=== PATIENT | female | born 1970 | race African-American/Black ===

== ENCOUNTER 2017-02-27 09:38 | Emergency (ER) | payer OTHER ==
[2017-02-27] VITALS (7 sets, daily range): BP systolic 102–126; BP diastolic 58–76
[~2017-02-27] VITALS: Ht 162.6 cm; Wt 81.5 kg
[2017-02-27] MEDS ORDERED: MORPHINE SULFATE 4 MG/ML SYRINGE IVP ONE (12:45)
[2017-02-27] MEDS ORDERED: SODIUM CHLORIDE 0.9% 1,000 ML IV ONE (12:45)
[2017-02-27] MEDS ORDERED: ONDANSETRON HCL 4 MG/2 ML VIAL IVP ONE (12:45)
[2017-02-27 13:16] LABS: INR 1.1 (0.9-1.1); PROTHROMBIN TIME 11.5 SEC (9.4-11.6)
[2017-02-27 13:39] LABS: ANION GAP 9 mmol/L (8-16); CALCIUM, TOTAL 8.7 mg/dL (8.8-10.5); CARBON DIOXIDE 23 mmol/L (22-29); CHLORIDE 101 mmol/L (98-107); GLOMERULAR FILTR. RATE CALC > 60 mL/min (>60); GLUCOSE,RANDOM 77 mg/dL (70-110); POTASSIUM 3.6 mmol/L (3.5-5.1); SODIUM SERUM 133 mmol/L (136-145); UREA NITROGEN, BLOOD 4 mg/dL (7-18)
[2017-02-27 13:47] LABS: ALANINE AMINOTRANSFERASE 66 U/L (12-78); ALBUMIN 3.7 g/dL (3.4-5.0); ALKALINE PHOSPHATASE 126 U/L (46-116); ASPARTATE AMINOTRANSFERASE 24 U/L (15-37); BILIRUBIN,TOTAL 0.8 mg/dL (0.1-1.0); TOTAL PROTEIN, SERUM 8.3 g/dL (6.4-8.2)
[2017-02-27 14:05] LABS: MEAN CORPUSCULAR HEMOGLOBIN 16.9 pg (26.0-34.0); MEAN CORPUSCULAR HGB CONC 30.4 G/dL (31.0-37.0); MEAN CORPUSCULAR VOLUME 56 fL (80-100); PLATELET COUNT (AUTO) 184 K/uL (150-450); RED BLOOD CELL COUNT(AUTO) 2.76 MIL/uL (4.00-5.20); RED CELL DISTRIBUTION WIDTH 30.5 % (11.5-14.5)
[2017-02-27 14:10] LABS: HEMOGLOBIN 4.7 g/dL (12.0-16.0)
[2017-02-27 14:11] LABS: HEMATOCRIT 15.4 % (36-46)
[2017-02-27 14:14] LABS: AMPHET/METH SCREEN,URINE POSITIVE (NEGATIVE); BARBITURATE SCREEN, URINE NEGATIVE (NEGATIVE); BENZODIAZEPINES SCREEN,URINE NEGATIVE (NEGATIVE); CANNABINOID SCREEN,URINE NEGATIVE (NEGATIVE); COCAINE SCREEN,URINE NEGATIVE (NEGATIVE); METHADONE SCREEN, URINE NEGATIVE (NEGATIVE); OPIATE SCREEN,URINE POSITIVE (NEGATIVE)
[2017-02-27 14:16] LABS: PHENCYCLIDINE SCREEN,URINE NEGATIVE (NEGATIVE)
[2017-02-27] MEDS ORDERED: BARIUM SULFATE 0.1% SUSPENSION 450 ML BOTTLE PO ONE (14:30)
[2017-02-27 14:50] LABS: APPEARANCE,URINE CLEAR (CLEAR); BILIRUBIN,URINE NEGATIVE (NEGATIVE); GLUCOSE, URINE (UA) NEGATIVE (NEGATIVE); KETONES,URINE NEGATIVE (NEGATIVE); LEUKOCYTE ESTERASE ,URINE NEGATIVE (NEGATIVE); NITRATE,URINE NEGATIVE (NEGATIVE); OCCULT BLOOD,URINE NEGATIVE (NEGATIVE); PROTEIN,URINE NEGATIVE (NEGATIVE)
[2017-02-27 14:55] LABS: BAND NEUTROPHILS % (MANUAL) 2 % (1-5); LYMPHOCYTES % (MANUAL) 11 % (22-44); MONOCYTES % (MANUAL) 4 % (2-9); SEGMENTED NEUTROPHILS % 83 % (40-70)
[2017-02-27] MEDS ORDERED: ACETAMINOPHEN 500 MG TABLET PO ONE (17:15)
[2017-02-27 21:27] LABS: INFLUENZA TYPE A POSITIVE FOR TYPE A (NEGATIVE); INFLUENZA TYPE B NEGATIVE FOR TYPE B (NEGATIVE)
[2017-02-27] MEDS ORDERED: OSELTAMIVIR PHOSPHATE 75 MG CAPSULE PO ONE (21:45)
[2017-02-28 00:02] VITALS: BP 118/68
== END 2017-02-28 01:54 | disposition short-term general hospital (02) ==
LOC: EMS 09:40
DX: D64.9 Anemia, unspecified (principal); R19.00 Intra-abdominal and pelvic swelling, mass and lump, unspecified site; J09.X2 Influenza due to identified novel influenza A virus with other respiratory manifestations
CPT/HCPCS: 36415; 36430; 74177; 80053; 80307; 81003; 85025; 85610; 86850; 86900; 86901; 86920; 87804; 96361; 96374; 96375; 99285; J2270; J2405; J7030; P9016; Z7610

== ENCOUNTER 2017-03-13 12:29 | Emergency (ER) | payer OTHER ==
[~2017-03-13] VITALS: Ht 172.7 cm; Wt 81.8 kg
[2017-03-13] MEDS ORDERED: FERR-89 PO (12:30)
[2017-03-13] MEDS ORDERED: FLUORESCEIN SODIUM 1 MG STRIP ONE (13:52)
[2017-03-13] MEDS ORDERED: PROPARACAINE HCL 0.5% 15 ML OPHTHALMIC SOLUTION OS ONE (14:00)
[2017-03-13 14:44] VITALS: BP 137/77
== END 2017-03-13 14:47 | disposition home or self-care (01) ==
LOC: EMS 12:29
DX: H10.9 Unspecified conjunctivitis (principal)
CPT/HCPCS: 99283

== ENCOUNTER 2017-11-22 06:10 | Emergency (ER) | payer OTHER ==
[~2017-11-22] VITALS: Ht 167.6 cm; Wt 85.0 kg
[~2017-11-22 06:10] MED LIST: FERR-89 PO
[2017-11-22] MEDS ORDERED: KETOROLAC TROMETHAMINE 60 MG/2 ML VIAL IM ONE (07:00)
[2017-11-22] MEDS ORDERED: HYDROCODONE/ACETAMINOPHEN 5-325 MG TABLET PO ONE (07:00)
[2017-11-22 08:03] VITALS: BP 143/84
== END 2017-11-22 08:10 | disposition home or self-care (01) ==
LOC: EMS 06:10
DX: S92.322A Displaced fracture of second metatarsal bone, left foot, initial encounter for closed fracture (principal); S92.332A Displaced fracture of third metatarsal bone, left foot, initial encounter for closed fracture; S92.342A Displaced fracture of fourth metatarsal bone, left foot, initial encounter for closed fracture; Z90.710 Acquired absence of both cervix and uterus; Z90.721 Acquired absence of ovaries, unilateral; W10.9XXA Fall (on) (from) unspecified stairs and steps, initial encounter; Y93.89 Activity, other specified; Y92.89 Other specified places as the place of occurrence of the external cause; Y99.8 Other external cause status
CPT/HCPCS: 73630; 96372; 99284; J1885

== ENCOUNTER 2021-04-22 11:19 | Emergency (ER) | payer OTHER ==
[~2021-04-22] VITALS: Ht 162.6 cm; Wt 104.5 kg
[2021-04-22] MEDS ORDERED: AmLODIPine BESYLATE 10 MG TABLET PO ONE (12:30)
[2021-04-22 12:33] LABS: EOSINOPHILS % (AUTO) 4.2 % (1.0-6.0); HEMATOCRIT 38.4 % (36-46); HEMOGLOBIN 13.4 g/dL (12.0-16.0); LYMPHOCYTES # (AUTO) 1.9 K/uL (1.0-4.8); LYMPHOCYTES % (AUTO) 31.3 % (22.0-44.0); MEAN CORPUSCULAR HEMOGLOBIN 27.5 pg (26.0-34.0); MEAN CORPUSCULAR HGB CONC 34.8 G/dL (31.0-37.0); MEAN CORPUSCULAR VOLUME 79 fL (80-100); MONOCYTES # (AUTO) 0.6 K/uL (0.1-1.0); MONOCYTES % (AUTO) 10.6 % (2.0-9.0); NEUTROPHILS # (AUTO) 3.2 K/uL (1.8-7.7); NEUTROPHILS % (AUTO) 52.9 % (40.0-70.0); PLATELET COUNT (AUTO) 288 K/uL (150-450); RED BLOOD CELL COUNT(AUTO) 4.86 MIL/uL (4.00-5.20)
[2021-04-22] MEDS ORDERED: AMLO-258 PO (12:36)
[2021-04-22] MEDS ORDERED: PANT-31 PO (12:36)
[2021-04-22 12:46] LABS: ANION GAP 10 mmol/L (8-16); CALCIUM, TOTAL 8.9 mg/dL (8.8-10.5); CARBON DIOXIDE 28 mmol/L (22-29); CHLORIDE 101 mmol/L (98-107); CREATININE 0.69 mg/dL (0.60-1.30); GLOMERULAR FILTR. RATE CALC > 60 mL/min (>60); GLUCOSE,RANDOM 98 mg/dL (70-110); SODIUM SERUM 139 mmol/L (136-145); UREA NITROGEN, BLOOD 3 mg/dL (7-18)
[2021-04-22 13:43] VITALS: BP 153/102
== END 2021-04-22 13:49 | disposition home or self-care (01) ==
LOC: EMS 11:19
DX: K21.9 Gastro-esophageal reflux disease without esophagitis (principal); I10 Essential (primary) hypertension
CPT/HCPCS: 71045; 80048; 85025; 93005; 99285; 36415-L1; 36415-TC

== ENCOUNTER 2021-05-17 12:13 | Emergency (ER) | payer OTHER ==
[~2021-05-17] VITALS: Ht 165.1 cm; Wt 106.8 kg
[~2021-05-17 12:13] MED LIST changes: +AMLO-258 PO; -FERR-89 PO; +PANT-31 PO
[2021-05-17] MEDS ORDERED: LIDOCAINE 5% TRANSDERMAL PATCH TD ONE (12:30)
[2021-05-17 12:53] LABS: BASOPHILS % (AUTO) 0.6 % (0.0-2.0); HEMATOCRIT 38.9 % (36-46); HEMOGLOBIN 13.4 g/dL (12.0-16.0); LYMPHOCYTES # (AUTO) 2.1 K/uL (1.0-4.8); LYMPHOCYTES % (AUTO) 22.3 % (22.0-44.0); MEAN CORPUSCULAR HEMOGLOBIN 27.2 pg (26.0-34.0); MEAN CORPUSCULAR HGB CONC 34.6 G/dL (31.0-37.0); MEAN CORPUSCULAR VOLUME 79 fL (80-100); MONOCYTES # (AUTO) 0.7 K/uL (0.1-1.0); MONOCYTES % (AUTO) 7.6 % (2.0-9.0); NEUTROPHILS # (AUTO) 6.4 K/uL (1.8-7.7); NEUTROPHILS % (AUTO) 67.5 % (40.0-70.0); PLATELET COUNT (AUTO) 337 K/uL (150-450); RED BLOOD CELL COUNT(AUTO) 4.93 MIL/uL (4.00-5.20); RED CELL DISTRIBUTION WIDTH 14.7 % (11.5-14.5)
[2021-05-17 13:08] LABS: ANION GAP 10 mmol/L (8-16); CALCIUM, TOTAL 9.5 mg/dL (8.8-10.5); CARBON DIOXIDE 27 mmol/L (22-29); CHLORIDE 101 mmol/L (98-107); CREATININE 0.66 mg/dL (0.60-1.30); GLOMERULAR FILTR. RATE CALC > 60 mL/min (>60); GLUCOSE,RANDOM 95 mg/dL (70-110); SODIUM SERUM 138 mmol/L (136-145); UREA NITROGEN, BLOOD 9 mg/dL (7-18)
[2021-05-17 13:15] LABS: ALANINE AMINOTRANSFERASE 76 U/L (12-78); ALKALINE PHOSPHATASE 169 U/L (46-116); ASPARTATE AMINOTRANSFERASE 52 U/L (15-37); BILIRUBIN,TOTAL 0.4 mg/dL (0.1-1.0); TOTAL PROTEIN, SERUM 8.9 g/dL (6.4-8.2)
[2021-05-17 14:36] VITALS: BP 142/97
[2021-05-17] MEDS ORDERED: LIDO700A15 TP (14:37)
[2021-05-17] MEDS ORDERED: IBUP-1554 PO (14:37)
[2021-05-17] MEDS ORDERED: BACL10TA PO (14:37)
[2021-05-17] MEDS ORDERED: AMLO-258 PO (14:41)
== END 2021-05-17 14:50 | disposition home or self-care (01) ==
LOC: EMS 12:13
DX: I10 Essential (primary) hypertension (principal); M62.838 Other muscle spasm; R51.9 Headache, unspecified; D64.9 Anemia, unspecified; Z79.899 Other long term (current) drug therapy
CPT/HCPCS: 80053; 84484; 85025; 93005; 99284

== ENCOUNTER 2023-01-05 12:05 | Emergency (ER) | payer OTHER ==
[~2023-01-05] VITALS: Ht 162.6 cm; Wt 90.9 kg
[~2023-01-05 12:05] MED LIST changes: +BACL10TA PO; +IBUP-1554 PO; +LIDO700A15 TP
[2023-01-05 12:16] VITALS: TEMP 98.6
[2023-01-05] MEDS ORDERED: ATOR20TA65 PO (14:57)
[2023-01-05] MEDS ORDERED: LOSA100T59 PO (14:57)
[2023-01-05] MEDS ORDERED: OMEP20CA12 PO (14:57)
[2023-01-05] MEDS ORDERED: PROP10DR15 OU (14:57)
[2023-01-05] MEDS ORDERED: AMLO5TAB66 PO (14:57)
[2023-01-05] MEDS ORDERED: PredniSONE 10 MG TABLET PO ONE (15:00)
[2023-01-05 15:28] VITALS: BP 142/90; PULSE 75; RESP 18
== END 2023-01-05 15:29 | disposition home or self-care (01) ==
LOC: EMS 12:05
DX: T63.481A Toxic effect of venom of other arthropod, accidental (unintentional), initial encounter (principal); E78.00 Pure hypercholesterolemia, unspecified; I10 Essential (primary) hypertension; Z98.890 Other specified postprocedural states
CPT/HCPCS: 99283; J7512

== ENCOUNTER 2023-06-21 15:28 | Emergency (ER) | payer OTHER ==
[~2023-06-21] VITALS: Ht 167.6 cm; Wt 84.1 kg
[~2023-06-21 15:28] MED LIST changes: -AMLO-258 PO; +AMLO5TAB66 PO; +ATOR20TA65 PO; -IBUP-1554 PO; +LOSA100T59 PO; +OMEP20CA12 PO; -PANT-31 PO; +PROP10DR15 OU
[2023-06-21 15:32] VITALS: TEMP 98.4
[2023-06-21] MEDS ORDERED: MECL-302 PO (15:35)
[2023-06-21] MEDS ORDERED: HYDR12.54 PO (15:35)
[2023-06-21 21:29] LABS: EOSINOPHILS % (AUTO) 3.2 % (1.0-6.0); HEMATOCRIT 40.2 % (36-46); HEMOGLOBIN 13.7 g/dL (12.0-16.0); LYMPHOCYTES # (AUTO) 3.1 K/uL (1.0-4.8); LYMPHOCYTES % (AUTO) 30.8 % (22.0-44.0); MEAN CORPUSCULAR HGB CONC 34.1 G/dL (31.0-37.0); MEAN CORPUSCULAR VOLUME 79 fL (80-100); MONOCYTES # (AUTO) 0.7 K/uL (0.1-1.0); MONOCYTES % (AUTO) 7.2 % (2.0-9.0); NEUTROPHILS # (AUTO) 5.8 K/uL (1.8-7.7); NEUTROPHILS % (AUTO) 57.8 % (40.0-70.0); PLATELET COUNT (AUTO) 342 K/uL (150-450); RED BLOOD CELL COUNT(AUTO) 5.08 MIL/uL (4.00-5.20); RED CELL DISTRIBUTION WIDTH 15.3 % (11.5-14.5); WHITE BLOOD COUNT (AUTO) 10.1 K/uL (4.5-11.0)
[2023-06-21 21:40] LABS: ANION GAP 11 mmol/L (8-16); CALCIUM, TOTAL 9.7 mg/dL (8.8-10.5); CARBON DIOXIDE 29 mmol/L (22-29); CHLORIDE 100 mmol/L (98-107); CREATININE 0.71 mg/dL (0.60-1.30); GLOMERULAR FILTR. RATE CALC > 60 mL/min (>60); GLUCOSE,RANDOM 111 mg/dL (70-110); POTASSIUM 3.7 mmol/L (3.5-5.1); SODIUM SERUM 140 mmol/L (136-145); UREA NITROGEN, BLOOD 9 mg/dL (7-18)
[2023-06-21 21:46] LABS: ALANINE AMINOTRANSFERASE 57 U/L (12-78); ALBUMIN 4.1 g/dL (3.4-5.0); ALKALINE PHOSPHATASE 195 U/L (46-116); ASPARTATE AMINOTRANSFERASE 40 U/L (15-37); BILIRUBIN,TOTAL 0.6 mg/dL (0.1-1.0); TOTAL PROTEIN, SERUM 9.5 g/dL (6.4-8.2)
[2023-06-21] MEDS: TraMADol HCL 50 MG TABLET PO ONE (22:20)
[2023-06-21] MEDS ORDERED: CYCL-448 PO (22:48)
[2023-06-21 23:00] VITALS: BP 131/88; PULSE 74; RESP 16
== END 2023-06-21 23:09 | disposition home or self-care (01) ==
LOC: EMS 15:28
DX: M25.511 Pain in right shoulder (principal); E78.00 Pure hypercholesterolemia, unspecified; I10 Essential (primary) hypertension; K21.9 Gastro-esophageal reflux disease without esophagitis; V98.8XXA Other specified transport accidents, initial encounter; Y93.89 Activity, other specified; Y92.89 Other specified places as the place of occurrence of the external cause; Y99.8 Other external cause status
CPT/HCPCS: 70450; 72125; 80053; 85025; 99284

== ENCOUNTER 2023-11-03 10:13 | Emergency (ER) | payer OTHER ==
[~2023-11-03] VITALS: Ht 165.1 cm; Wt 126.0 kg
[~2023-11-03 10:13] MED LIST changes: -AMLO5TAB66 PO; +ASPI-1444 PO; -BACL10TA PO; -LIDO700A15 TP; -LOSA100T59 PO; +MECL-302 PO; +METO25 PO
[2023-11-03] MEDS ORDERED: ATOR20TA PO (10:30)
[2023-11-03 10:31] VITALS: TEMP 97.9
[2023-11-03 12:08] LABS: BASOPHILS % (AUTO) 0.4 % (0.0-2.0); EOSINOPHILS % (AUTO) 2.2 % (1.0-6.0); HEMATOCRIT 39.6 % (36-46); HEMOGLOBIN 13.3 g/dL (12.0-16.0); LYMPHOCYTES % (AUTO) 27.4 % (22.0-44.0); MEAN CORPUSCULAR HEMOGLOBIN 27.2 pg (26.0-34.0); MEAN CORPUSCULAR HGB CONC 33.5 G/dL (31.0-37.0); MEAN CORPUSCULAR VOLUME 81 fL (80-100); MONOCYTES # (AUTO) 0.7 K/uL (0.1-1.0); MONOCYTES % (AUTO) 9.7 % (2.0-9.0); NEUTROPHILS # (AUTO) 4.4 K/uL (1.8-7.7); NEUTROPHILS % (AUTO) 60.3 % (40.0-70.0); PLATELET COUNT (AUTO) 278 K/uL (150-450); RED BLOOD CELL COUNT(AUTO) 4.89 MIL/uL (4.00-5.20); RED CELL DISTRIBUTION WIDTH 15.3 % (11.5-14.5); WHITE BLOOD COUNT (AUTO) 7.4 K/uL (4.5-11.0)
[2023-11-03 12:18] LABS: ANION GAP 7 mmol/L (8-16); CALCIUM, TOTAL 8.7 mg/dL (8.8-10.5); CARBON DIOXIDE 29 mmol/L (22-29); CHLORIDE 101 mmol/L (98-107); CREATININE 0.72 mg/dL (0.60-1.30); GLOMERULAR FILTR. RATE CALC > 60 mL/min (>60); GLUCOSE,RANDOM 122 mg/dL (70-110); POTASSIUM 3.9 mmol/L (3.5-5.1); SODIUM SERUM 137 mmol/L (136-145); UREA NITROGEN, BLOOD 6 mg/dL (7-18)
[2023-11-03 12:27] LABS: TROPONIN I-HIGH SENSITIVITY 7 ng/L (<51)
[2023-11-03] MEDS: PROPARACAINE HCL 0.5% 15 ML OPHTHALMIC SOLUTION OU ONE (12:27)
[2023-11-03] MEDS: METOCLOPRAMIDE HCL 10 MG TABLET PO ONE (13:14)
[2023-11-03] MEDS: ACETAMINOPHEN 325 MG TABLET PO ONE (13:14)
[2023-11-03 13:30] VITALS: BP 128/74; PULSE 68; RESP 18; O2SAT 99
== END 2023-11-03 13:40 | disposition home or self-care (01) ==
LOC: EMS 10:13
DX: R00.2 Palpitations (principal); H20.9 Unspecified iridocyclitis; H54.7 Unspecified visual loss; K21.9 Gastro-esophageal reflux disease without esophagitis; I10 Essential (primary) hypertension; E78.5 Hyperlipidemia, unspecified
CPT/HCPCS: 71045; 80048; 84484; 85025; 93005; 99285; 36415-L1; 36415-TC

== ENCOUNTER 2024-07-30 13:46 | Emergency (ER) | payer OTHER ==
[~2024-07-30] VITALS: Ht 172.7 cm; Wt 129.1 kg
[~2024-07-30 13:46] MED LIST changes: +ATOR20TA PO
[2024-07-30 13:51] VITALS: TEMP 98.6
[2024-07-30] MEDS ORDERED: AMLO10TA55 PO (13:52)
[2024-07-30 14:59] LABS: BASOPHILS % (AUTO) 0.6 % (0.0-2.0); EOSINOPHILS % (AUTO) 2.5 % (1.0-6.0); HEMATOCRIT 39.1 % (36-46); HEMOGLOBIN 13.3 g/dL (12.0-16.0); LYMPHOCYTES # (AUTO) 2.4 K/uL (1.0-4.8); LYMPHOCYTES % (AUTO) 28.2 % (22.0-44.0); MEAN CORPUSCULAR HEMOGLOBIN 26.6 pg (26.0-34.0); MEAN CORPUSCULAR HGB CONC 33.8 G/dL (31.0-37.0); MEAN CORPUSCULAR VOLUME 79 fL (80-100); MONOCYTES # (AUTO) 0.7 K/uL (0.1-1.0); MONOCYTES % (AUTO) 7.5 % (2.0-9.0); NEUTROPHILS # (AUTO) 5.3 K/uL (1.8-7.7); NEUTROPHILS % (AUTO) 61.2 % (40.0-70.0); PLATELET COUNT (AUTO) 359 K/uL (150-450); RED BLOOD CELL COUNT(AUTO) 4.97 MIL/uL (4.00-5.20); RED CELL DISTRIBUTION WIDTH 14.5 % (11.5-14.5); WHITE BLOOD COUNT (AUTO) 8.7 K/uL (4.5-11.0)
[2024-07-30 15:09] LABS: ANION GAP 8 mmol/L (8-16); CALCIUM, TOTAL 8.9 mg/dL (8.8-10.5); CARBON DIOXIDE 29 mmol/L (22-29); CHLORIDE 102 mmol/L (98-107); CREATININE 0.97 mg/dL (0.60-1.30); GLOMERULAR FILTR. RATE CALC > 60 mL/min (>60); GLUCOSE,RANDOM 113 mg/dL (70-110); POTASSIUM 3.8 mmol/L (3.5-5.1); SODIUM SERUM 139 mmol/L (136-145); UREA NITROGEN, BLOOD 7 mg/dL (7-18)
[2024-07-30 15:24] LABS: C-REACTIVE PROTEIN QUANT 2.67 mg/dL (0.00-0.30); THYROID STIMULATING HORMONE 0.86 uIU/mL (0.36-3.74)
[2024-07-30 15:29] LABS: ERYTHROCYTE SEDIMENTATION RATE 63 MM/HR (0-30)
[2024-07-30 15:39] VITALS: BP 141/86; PULSE 91; RESP 16; O2SAT 98
[2024-07-30] MEDS ORDERED: IOHEXOL 350 MG/ML 100 ML VIAL ONE (15:40)
[2024-07-30] MEDS ORDERED: 0.9% SODIUM CHLORIDE 10 ML SYRINGE IVP ONE (15:40)
[2024-07-30] MEDS ORDERED: SODIUM CHLORIDE 0.9% 100 ML ONE (15:41)
== END 2024-07-30 18:08 | disposition home or self-care (01) ==
LOC: EMS 13:46
DX: R22.1 Localized swelling, mass and lump, neck (principal); I10 Essential (primary) hypertension; E78.00 Pure hypercholesterolemia, unspecified; M10.9 Gout, unspecified; K21.9 Gastro-esophageal reflux disease without esophagitis; E78.9 Disorder of lipoprotein metabolism, unspecified
CPT/HCPCS: 99285; 70491; 80048; 84443; 85025; 85651; 86140; 36415; Q9967; J7050